=== PATIENT | female | born 1980 | race Caucasian/White ===

== ENCOUNTER → 2021-01-06 | Outpatient (CLI) | payer BC, OTHER | LOC: KOH-I 08:51 | DX: R19.7 Diarrhea, unspecified (principal); K76.0 Fatty (change of) liver, not elsewhere classified | CPT/HCPCS: 76705 ==

== ENCOUNTER → 2021-01-20 | Outpatient (CLI) | payer BC, OTHER | LOC: CT 08:35 | DX: R19.7 Diarrhea, unspecified (principal); K42.9 Umbilical hernia without obstruction or gangrene | CPT/HCPCS: Q9967 ==

== ENCOUNTER → 2021-02-20 | Outpatient (CLI) | payer BC, OTHER | LOC: NM 08:39 | DX: R19.7 Diarrhea, unspecified (principal); R93.2 Abnormal findings on diagnostic imaging of liver and biliary tract | CPT/HCPCS: 78226; A9537 ==